=== PATIENT | male | born 1930 | race Caucasian/White ===

== ENCOUNTER 2016-12-18 09:37 | Day surgery (SDC) | payer MEDICARE ==
--- NOTE | ~2016-12-18 | CN ---
Consultation Report [address] [place]. [address] NAME: ESTEE HERNANDEZ : [birth year] STATUS : REG [facility] PAT#: [id number] AGE: 86 ADM/REG DATE : 12/18/16 MR#: [id number] REPORT SERV DATE: 12/18/16 DICTATED BY: CARLA CARLSON DATE: 12/18/16 REPORT STATUS : Draft TRANSCRIBED BY: MODL DATE: 12/18/16 CONSULTATION REPORT DATE OF CONSULTATION: Dear Dr. My Alejandre, Dr. Ramón Davies, and Dr. Mirlande Pitt: Thank you for requesting my opinion regarding evaluation and management of Mr. Estee Hernandez's new mediastinal lymphadenopathy and left lower lobe lung mass. Mr. Hernandez is an extremely pleasant 86-year-old gentleman with a significant past medical history of adenocarcinoma, status post radiation therapy who underwent repeat PET-CT scan on 12/05/2016 that demonstrated left lung post radiation treatment pneumonitis with associated reactive adenopathy, some of the lymph nodes have significantly enlarged and are more FDG avid than on the pretreatment exam, but it is hard to exclude metastases. New inflammatory changes were also noted in the right pulmonary base. No extrathoracic disease was identified. Mr. Hernandez states that he has chronic shortness of breath well localized to the chest, nonradiating with no significant alleviating or exacerbating factors. REVIEW OF SYSTEMS: A detailed 14-point review of systems was completed. Pertinent positives and negatives are listed above. ALLERGIES: NO KNOWN DRUG ALLERGIES. HOME MEDICATIONS: Reviewed and located in the paper chart. PAST MEDICAL HISTORY: 1. Cataracts. 2. Gout. 3. Kidney stones. 4. Prostate disease. 5. Left lower lobe lung adenocarcinoma. PAST SURGICAL HISTORY: 1. Appendectomy. 2. Cataract surgery. 3. Gallbladder surgery. 4. Inguinal hernia repair. 5. Knee replacement. 6. Knee surgery. 7. Prostate surgery. FAMILY HISTORY: Colon cancer, COPD, anemia, arthritis, hypertension, hyperlipidemia, type 1 and type 2 diabetes, and depression. Consultation Report [address] [place]. [address] NAME: ESTEE HERNANDEZ : 34 STATUS : REG [facility] PAT#: [id number] AGE: 86 ADM/REG DATE : 12/18/16 MR#: [id number] REPORT SERV DATE: 12/18/16 DICTATED BY: LILLYRAFAELAJ DATE: 12/18/16 REPORT STATUS : Draft TRANSCRIBED BY: NEENA DATE: 12/18/16 SOCIAL HISTORY: The patient smoked less than one pack per day for 40 years. He denies any significant secondhand smoke exposure, and there is no history of alcohol or illicit drug abuse. PHYSICAL EXAMINATION: VITAL SIGNS: Vital signs were reviewed and located in the paper chart. GENERAL: In no acute distress. Able to communicate in full paragraphs at a time. HEENT: Normocephalic and atraumatic. Pupils are equal, round, and reactive to light and accommodation. Posterior oropharynx is clear. NECK: No JVD. No LAD. Trachea midline. CARDIOVASCULAR: Regular rate and rhythm. S1 and S2 present. LUNGS: Coarse bilateral breath sounds. No end-expiratory wheezes noted. ABDOMEN: Nontender and nondistended. Soft. Positive bowel sounds. EXTREMITIES: No clubbing, cyanosis, or edema. SKIN: No new rashes, lesions, or ulcers. PSYCHIATRIC: Alert and oriented x3. Appropriate mood and affect. Appropriate insight and judgment. NEUROLOGIC: 5/5 strength in upper and lower extremities. Cranial nerves II through XII are intact. Gait not tested. DTRs not performed. IMAGING: PET-CT scan performed on 12/05/2016 was personally reviewed by me. Mediastinal lymph nodes have enlarged and are more FDG avid than on the prior exam. Level 6 lymph node measures 1.5 cm versus 0.7 cm. FDG uptake is increased to 4.7 versus 3.5. 10R lymph node is much more avid on the previous scan with a maximum FDG uptake of 4.94. 4L lymph node had a previous maximum of 3.6, now has 6.6. The mediastinal lymphadenopathy and left lung mass may represent residual disease or recurrence, however, this could also represent post radiation reactive changes. ASSESSMENT AND PLAN: Mr. Hernandez is a pleasant 86-year-old gentleman with a significant past medical history of left lower lobe adenocarcinoma, status post radiation therapy, who presents to [facility] for formal evaluation of an abnormal surveillance PET-CT scan with enlarging and intensive FDG avid, mediastinal lymphadenopathy, and left lower lobe lung mass. The clinical and radiographic presentation could be consistent with progressive disease versus reactive changes secondary to radiation. At this point, Mr. Hernandez needs an appropriate diagnostic intervention. We discussed in detail potential options including CT-guided FNA, thoracic surgical biopsy or EBUS, and navigation bronchoscopy. After careful discussion of the risks, benefits, and alternatives to each of these procedures, we agreed to proceed forward with EBUS and navigation bronchoscopy. A summary of my recommendations are as follows: 1. Proceed with EBUS and navigation bronchoscopy. 2. Follow up with doctors, Dr. Ramón Davies, Dr. My Alejandre, and Dr. Mirlande Pitt. Consultation Report [address] [place]. [address] NAME: ESTEE HERNANDEZ : 34 STATUS : REG [facility] PAT#: [id number] AGE: 86 ADM/REG DATE : 12/18/16 MR#: [id number] REPORT SERV DATE: 12/18/16 DICTATED BY: CARLA CARLSON DATE: 12/18/16 REPORT STATUS : Draft TRANSCRIBED BY: NEENA DATE: 12/18/16 YULI/NEENA Carla Carlson M.D. / [id number] CC: Pete Godinez SAMIYA
--- NOTE | ~2016-12-18 | EGD ---
EGD REPORT [facility] [address] [id number] NAME: ESTEE HERNANDEZ : 34 STATUS : REG [facility] [place] PAT#: [id number] AGE: 86 ADM/REG DATE : 12/18/16 MR#: [id number] REPORT SERV DATE: 12/18/16 DICTATED BY: SARANYA CARR DATE: 12/18/16 REPORT STATUS : Draft TRANSCRIBED BY: [facility] DATE: 12/18/16 Pulmonology Patient Name: Estee Hernandez Procedure Date: 12/18/2016 11:42 AM Date of : 1930 Attending MD: TIEN CARR MD Procedure Date No Time: 12/18/2016 Procedure: EBUS Bronchoscopy Indications: Left lower lobe mass Providers: TIEN CARR MD Referring MD: Jaime Alejandre Medicines: Lidocaine 2% 20 mL Complications: No immediate complications Procedure: Pre-Anesthesia Assessment: - A History and Physical has been performed. Patient meds and allergies have been reviewed. The risks and benefits of the procedure and the sedation options and risks were discussed with the patient. All questions were answered and informed consent was obtained. Patient identification and proposed procedure were verified prior to the procedure by the physician and the nurse in the pre-procedure area in the procedure room. Mental Status Examination: normal. Airway Examination: normal oropharyngeal airway. Respiratory Examination: poor air movement. CV Examination: normal and RRR, no murmurs, no S3 or S4. ASA Grade Assessment: IV - A patient with severe systemic disease that is a constant threat to life. After reviewing the risks and benefits, the patient was deemed in satisfactory condition to undergo the procedure. The anesthesia plan was to use general anesthesia. Immediately prior to administration of medications, the patient was re-assessed for adequacy to receive sedatives. The heart rate, respiratory rate, oxygen saturations, blood pressure, adequacy of pulmonary ventilation, and response to care were monitored throughout the procedure. The physical status of the patient was re-assessed after the procedure. After obtaining informed consent, the Bronchoscope was introduced through the mouth, via the endotracheal tube (the patient was intubated for the procedure) and advanced to the tracheobronchial tree. the BF [id number] was introduced through the mouth, via the endotracheal tube (the patient was intubated for the procedure) and advanced to the tracheobronchial tree. The procedure was accomplished without difficulty. The EGD REPORT [address] [address] NAME: ESTEE HERNANDEZ : [birth year] STATUS : REG [facility] [place] PAT#: [id number] AGE: 86 ADM/REG DATE : 12/18/16 MR#: [id number] REPORT SERV DATE: 12/18/16 DICTATED BY: SARANYA CARR DATE: 12/18/16 REPORT STATUS : Draft TRANSCRIBED BY: [employer] DATE: 12/18/16 patient tolerated the procedure well. Findings: The endotracheal tube is in good position. The visualized portion of the trachea is of normal caliber. The fritz is sharp. The tracheobronchial tree was examined to at least the first subsegmental level. Bronchial mucosa and anatomy are normal; there are no endobronchial lesions, and no secretions. EBUS TBNA of lymph node level 11R x 4 passes for cytology EBUS TBNA of lymph node level 7 x 4 passes for cytology EBUS TBNA of lymph node level 4L x 4 passes for cytology EBUS TBNA of lymph node level 11L x 4 passes for cytology Brushings were obtained in the right middle lobe of the lung and sent for routine cytology. One sample was obtained. Impression: Rapid On-Site Evaluation (BRYAN): Preliminary cytology is POSITIVE for malignancy (final results are pending). Recommendation: - Await test results. - Chest X-ray. - Follow up with Drs. Ramón Davies and My Alejandre Attending Participation: I personally performed the entire procedure. TIEN CARR MD 12/18/2016 12:47 PM This report has been signed electronically. Number of Addenda: 0 Note Initiated On: 12/18/2016 11:42 AM [address] [id number]
[~2016-12-18 09:37] MED LIST: ACET500CAP PO; BROVANA15 MCG INH; DUONEB INH; FISH-EPA1000 MG PO; INDO50 PO; MULTIPLE VIT PO; PREV15 PO; PRILO PO; PRIM250 PO; PRIMIDONE250 MG OR; ZANTAC150 MG PO
[2016-12-18 10:09] LABS: BUN (BLOOD UREA NITROGEN) 16 MG/DL (6-23); CALCIUM, SERUM 9.1 MG/DL (8.5-10.4); CHLORIDE, SERUM 106 MMOL/L (96-112); CO2 (CARBON DIOXIDE) 26 MMOL/L (24-34); CREATININE 1.02 MG/DL (0.70-1.30); GFR AFRICAN AMERICAN 78 ML/MIN (>=60); GFR NON AFRICAN AMERICAN 67 ML/MIN (>=60); GLUCOSE, SERUM 95 MG/DL (60-99); POTASSIUM, SERUM 4.3 MMOL/L (3.5-5.3); SODIUM, SERUM 142 MMOL/L (135-148)
[2016-12-18 10:11] LABS: INTERNATIONAL NORMAL RATI 1.1 UNITS (-); PARTIAL THROMBO TIME 33.7 SEC (22.5-37.2); PROTIME (NOT ORD) 14.2 SEC (12.0-14.5)
[2016-12-18 10:35] LABS: BASOPHILS 0.6 %; BASOPHILS ABSOLUTE 0.03 10/3/uL (0.0-0.16); EOSINOPHILS 4.6 %; EOSINOPHILS ABSOLUTE 0.22 10/3/uL (0.0-0.53); HEMATOCRIT 42.3 % (40.0-51.0); HEMOGLOBIN 14.7 g/dL (13.6-17.8); IMMATURE GRANULOCYTES 0.2 %; IMMATURE GRANULOCYTES ABSOLUTE 0.01 10/3/uL (0.0-0.11); LYMPHOCYTES 11.6 %; LYMPHOCYTES ABSOLUTE 0.55 10/3/uL (0.67-4.30); MANUAL DIFF NO %; MEAN CORPUS HGB CONC 34.8 g/dL (32.0-36.0); MEAN CORPUSCULAR HEMOGLOB 33.3 pg (26.0-34.0); MEAN CORPUSCULAR VOLUME 95.9 fL (80-100); MEAN PLATELET VOLUME 10.2 fL (9.2-13.0); MONOCYTES 12.4 %; MONOCYTES ABSOLUTE 0.59 10/3/uL (0.21-1.20); NEUTROPHILS 70.6 %; NEUTROPHILS ABSOLUTE 3.34 10/3/uL (2.02-8.40); PLATELET COUNT 207 10/3/uL (150-400); RBC DISTRIBUTION WIDTH 13.2 % (12.0-16.0); RED CELL COUNT 4.41 10/6/uL (4.7-6.1); WHITE BLOOD CELLS 4.7 10/3/uL (4.5-10.5)
[2017-02-03] MEDS ORDERED: ZANTAC 150 PO (10:48)
[2017-02-03] MEDS ORDERED: TAGRISSO PO (10:48)
[2017-02-03] MEDS ORDERED: BROVANA15 MCG INH (10:49)
[2017-02-03] MEDS ORDERED: MONODOX100 MG PO (10:49)
[2017-02-03] MEDS ORDERED: ATROVENTUD INH ×2 (11:00)
[2017-02-03] MEDS ORDERED: PRIM250 PO ×2 (11:01→11:02)
== END 2016-12-18 23:59 | disposition home health service (06) ==
LOC: DMU 09:37
PROVIDERS: Anesthesiology; Internal Medicine
PROC: 0BB58ZX Excision of Right Middle Lobe Bronchus, Via Natural or Artificial Opening Endoscopic, Diagnostic (ICD-10-PCS; principal; 2016-12-18 11:00)
PROC: 07B74ZX Excision of Thorax Lymphatic, Percutaneous Endoscopic Approach, Diagnostic (ICD-10-PCS; 2016-12-18 11:00)
DX: C77.1 Secondary and unspecified malignant neoplasm of intrathoracic lymph nodes (principal); J44.9 Chronic obstructive pulmonary disease, unspecified; M19.90 Unspecified osteoarthritis, unspecified site; K21.9 Gastro-esophageal reflux disease without esophagitis; N40.0 Benign prostatic hyperplasia without lower urinary tract symptoms; Z85.118 Personal history of other malignant neoplasm of bronchus and lung; Z79.899 Other long term (current) drug therapy; Z90.49 Acquired absence of other specified parts of digestive tract; Z98.890 Other specified postprocedural states; Z87.442 Personal history of urinary calculi; Z98.41 Cataract extraction status, right eye; Z98.42 Cataract extraction status, left eye; Z96.651 Presence of right artificial knee joint
CPT/HCPCS: 71010; 80048; 85025; 85610; 85730; 88112; 88172; 88173; 88305; 88333; 93005; A9270-GY; C1725; J2710; J3010

== ENCOUNTER 2017-02-28 16:49 | Inpatient (IN) | payer MEDICARE ==
--- NOTE | ~2017-02-28 | HP ---
History And Physical [place] [facility] [place]. [address] NAME: ESTEE HERNANDEZ : 34 STATUS : ADM IN PAT#: [id number] AGE: 87 ADM/REG DATE : 02/28/17 MR#: [id number] REPORT SERV DATE: 03/01/17 DICTATED BY: BONILLA WILSON DATE: 02/28/17 REPORT STATUS : Draft TRANSCRIBED BY: MODL DATE: 02/28/17 DATE OF ADMISSION: 02/28/2017 IDENTIFYING DATA: An 87-year-old white male whose PCP is nurse practitioner, Candelaria Grubbs; medical oncologist, Ramón Davies M.D.; radiation oncologist, Dr. Jaime Alejandre; urologist, Dr. Terrence Norman; neurologist, Dr. Alejandrina Bhat. CHIEF COMPLAINT: Weakness and cough. HISTORY OF PRESENT ILLNESS: This history of present illness is obtained by talking directly with the patient and his at the bedside. There is also a daughter and a daughter-in- law and another gentleman, and I spoke with the ER provider, Dr. Brunson, I looked at [facility] and the current ER paper chart. He was diagnosed with stage IB adenocarcinoma of left lower lobe, in March 2016 he had radiation treatment. Earlier this year he was noted to have brain metastases on MRI of the brain 01/06/2017, felt to have stage IV lung cancer. He was admitted to the hospital here on 02/03/2017. He at that time had a COPD exacerbation and was followed by Dr. Ramón Davies along with the Internal Medicine Team, and the notes indicated the patient was not felt to be a candidate for any further chemo or radiation therapy. He had been trying Tagrisso, but he had to hold his primidone which he normally takes for tremor, and he did not seem to tolerate the Tagrisso, so they took him off it, and put him back on his primidone. During that hospitalization, he was treated for his COPD, and felt better. He did make it clear that he was DNR. Since being at home, he has continued to get progressively weaker and more anorexic, having a lot of mid spine and low back pain. Saw his urologist a few days ago for dysuria and was given some Septra DS and felt better in that regard. He has been coughing more, more short of breath, so he is brought to the emergency room here and we were asked to evaluate him. He states he did get the flu shot last fall and he is up-to-date on his pneumonia vaccine as far as he knows. REVIEW OF SYSTEMS: He has a worsening chronic cough. He has some urinary hesitancy, and two to three time per night nocturia. He has increasing shortness of breath, has dyspnea on exertion. He has lost his taste. He has some chronic headaches over the last few months. He denies any recent falls, fever, change in sputum. He denies any significant edema, rash, chest pain, tick bites, abdominal pain, diarrhea, rectal bleeding, or melena. ALLERGIES: NO KNOWN DRUG ALLERGIES. PAST MEDICAL HISTORY: He denies any history of diabetes, hypertension, heart disease, stroke, seizure, peptic ulcer, liver disease, thyroid disease. He has oxygen dependent COPD, where he was wearing just 2 L at bedtime, now he is wearing it History And Physical [address] [address] NAME: ESTEE HERNANDEZ : 34 STATUS : ADM IN PAT#: [id number] AGE: 87 ADM/REG DATE : 02/28/17 MR#: [id number] REPORT SERV DATE: 03/01/17 DICTATED BY: BONILLA WILSON DATE: 02/28/17 REPORT STATUS : Draft TRANSCRIBED BY: NEENA DATE: 02/28/17 pretty much all the time. He has sleep apnea, but he never went back to get tested for CPAP. He has a history of gout. He has pretty severe essential tremor and apparently he does better on the primidone, now that he has been placed back on it. He has had kidney stones. He has had benign prostatic hypertrophy. He has had gastroesophageal reflux disease. HOME MEDICATIONS: 1. Tylenol p.r.n. 2. Brovana 15 mcg inhale twice a day. 3. Lexapro 5 mg daily. 4. Atrovent nebulized q.4 hours p.r.n. shortness of breath. 5. Protonix 40 mg daily. 6. MiraLAX one packet daily. 7. Mysoline 375 mg b.i.d. 8. Bactrim DS p.o. b.i.d., started on 02/26/2017. PAST SURGICAL HISTORY: He has had an appendectomy. He has had cataract surgery, cholecystectomy, left inguinal hernia, right knee replacement, and prostate resection. SOCIAL HISTORY: He is . He used to work as a builder. He used to smoke a pack per day from age 20 through somewhere in his 60s. No significant alcohol intake history. He used to use a cane, now he has gotten to where he needs a walker or wheelchair. FAMILY HISTORY: Mother had lung cancer. Dad with COPD. Siblings with diabetes, leukemia, and colon cancer. DIAGNOSTIC DATA: Chest x-ray done today as a PA and lateral reveals extensive interstitial scarring and/or small nodular infiltrate, its diffuse in bilateral lung smiley. He also has a chronic stable dense atelectasis that extends upward to the left out from the left hilum per my interpretation. EKG done today at 1418 hours reveals motion artifact, but appears to be a sinus rhythm and no other significant abnormalities. Sodium 133, potassium 4.1, chloride 102, CO2 is 23, BUN 14, creatinine 0.93, glucose 104, calcium 9, and albumin 3.1. Troponin less than 0.02. The rest of the liver profile is normal. Phenobarbital level is 22.5. His B-natriuretic peptide is 10.9. His white count is 6.4, hemoglobin 14.4, and platelets are 216,000. His urinalysis is still pending. PHYSICAL EXAMINATION: VITAL SIGNS: Temp 98, pulse 70, respirations 24, blood pressure 120/70, and O2 saturation is 90% on 2 L. History And Physical [address] [address] NAME: ESTEE HERNANDEZ : 34 STATUS : ADM IN PAT#: [id number] AGE: 87 ADM/REG DATE : 02/28/17 MR#: [id number] REPORT SERV DATE: 03/01/17 DICTATED BY: BONILLA WILSNO DATE: 02/28/17 REPORT STATUS : Draft TRANSCRIBED BY: NEENA DATE: 02/28/17 GENERAL: A well-developed male, who appears very weak. Mildly short of breath. HEENT: Head is atraumatic. Pupils are equal, round, and reactive to light. Extraocular motions are intact. No scleral icterus noted. Ear canals and TMs unremarkable. No inflammatory changes noted to the ears externally. Nose, noninflamed externally. Septum midline. Nares patent. He is wearing oxygen 2 L at this time by nasal cannula. Mouth is a bit dry, good gag. No redness of the throat, gums, or lips. No thrush noted at this time. NECK: Supple. No lymph node or thyroid enlargement. The carotids have good pulses. No bruits. LUNGS: Prolonged expiratory phase. 1 to 2+ expiratory wheezes, some crackles in the bases. Mildly increased respiratory effort. HEART: Regular rate and rhythm without murmur, gallop, click, or rub. ABDOMEN: Bowel sounds positive. Soft, nondistended, and nontender. No masses. No organomegaly. EXTREMITIES: He has clubbing. No cyanosis. He has 1+ bilateral ankle edema. No actively inflamed skin or joints. NEUROLOGIC: He is alert, oriented, and cooperative with grossly normal mentation and speech. His motor strength is 2/5 in all four extremities. No Babinski. No clonus noted. Cranial nerves 2 through 12 grossly normal. The patient has a moderate tremor with activity. It is present at rest, but more with activity. It is diffuse and symmetrical looks like essential tremor. ASSESSMENT: 1. Acute exacerbation of oxygen-dependent chronic obstructive pulmonary disease with increased shortness of breath, increased cough, increased dyspnea on minimal exertion, and a diffuse interstitial infiltrate. 2. 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 3. Mid spine pain suggestive of possible bony met. 4. History of gout. 5. Essential tremor. 6. Kidney stones. 7. History of benign prostatic hypertrophy. 8. History of gastroesophageal reflux disease. 9. Obstructive sleep apnea, and the patient refuses continuous positive airway pressure. PLAN: 1. Admit to the Oncology floor. 2. Nebulizer treatments. 3. Steroids with IV Solu-Medrol. 4. We are going to begin him on antibiotics, Rocephin, and azithromycin. We will check procalcitonin and urine antigens, blood cultures, and sputum Gram stain, C and S. 5. I will ask his medical oncologist to talk with him and his about two questions they have, one was whether he could get brain radiation and the second was I advised the patient to go on to hospice and they want to talk to Medical Oncology about that first. 6. I talked with the patient about his code status, he confirms DNR. 7. We will get MRI of the thoracic and lumbar spine and the brain as well to see if he has History And Physical [place] [address] [id number] NAME: ESTEE HERNANDEZ : [birth year] STATUS : ADM IN PAT#: [id number] AGE: 87 ADM/REG DATE : 02/28/17 MR#: [id number] REPORT SERV DATE: 03/01/17 DICTATED BY: BONILLA WILSON DATE: 02/28/17 REPORT STATUS : Draft TRANSCRIBED BY: NEENA DATE: 02/28/17 new metastases, and again he confirmed his DNR status, and we will try some Megace to see if it helps stimulate appetite. RSG/NEENA Bonilla Wilson M.D. / [id number] CC: MD Candelaria Arias II, FNP Sharon Farber, M.D. Davey B. Daniel, M.D. Jaime Alejandre MD
--- NOTE | ~2017-02-28 | DS ---
Discharge Summary [address] [place]. [address] NAME: ESTEE HERNANDEZ : 34 STATUS : DIS IN PAT#: [id number] AGE: 87 ADM/REG DATE : 02/28/17 MR#: [id number] REPORT SERV DATE: 03/03/17 DICTATED BY: DATE: REPORT STATUS : Draft TRANSCRIBED BY: MODL DATE: 03/02/17 ADMISSION DATE: 02/28/2017 DISCHARGE DATE: 03/02/2017 DISCHARGE DIAGNOSES: 1. Chronic obstructive pulmonary disease, acute exacerbation. 2. Urinary tract infection, present upon admission. 3. 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 4. Malnutrition. 5. Stage IV non-small cell lung cancer. 6. Chronic essential tremor. CONSULTATIONS: Dr. Tim Osorio, [facility]. PERTINENT TESTING PROCEDURES: 1. Chest x-ray, 02/28/2017. Impression: Stable consolidation of the left hilum correlating to the patient's known lung cancer and postobstructive pneumonitis. Multifocal miliary nodules seen with interstitial opacity suspicious for lymphangitic carcinomatosis and/or superimposed pneumonia. 2. MRI of the brain without contrast, 02/28/2017. Impression:. a. No acute intracranial abnormality. Left maxillary sinusitis. b. Non-identified [employer] metastases due to lack of IV contrast. No evidence of acute cranial hemorrhage, mass, hydrocephalus, or midline shift. 3. MRI of the lumbar spine without contrast, 02/28/2017. Impression:. a. Multifocal abnormal marrow signal lesions throughout the lumbar spine, sacrum, and iliac body strongly suspicious for multifocal osseous metastatic disease. Largest lesion is seen at T11 measuring 2 x 1 x 1 x 8 cm. No evidence of epidural or paraspinal mass. No pathologic fracture. 4. MRI of the thoracic spine, 02/28/2017. Impression: Multifocal metastatic disease without paraspinal or epidural mass. No pathologic fracture. 5. Urinalysis specimen collected, 02/28/2017. Result: Negative leukocyte andrew, negative nitrites, 1 red blood cell, less than 1 white blood cell, less than 1 epithelial/squamous cell. 6. Blood culture x2 sites, no growth at two days. 7. Strep pneumococcus and Legionella urine antigen. Result: Negative. CHIEF COMPLAINT: Upon admission, weakness and cough. HOSPITAL COURSE: Please refer to history and physical dated 03/01/[address] Luc Wilson for complete details pertaining to the patient's initial presentation upon admission and health history. 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 Followed by Dr. Ramón Davies, [facility]; and Dr. Alejandre, Radiation/Oncology. COPD, urinary tract infection diagnosed prior to this Discharge Summary [address] [address] NAME: ESTEE HERNANDEZ : 34 STATUS : DIS IN PAT#: [id number] AGE: 87 ADM/REG DATE : 02/28/17 MR#: [id number] REPORT SERV DATE: 03/03/17 DICTATED BY: DATE: REPORT STATUS : Draft TRANSCRIBED BY: MODL DATE: 03/02/17 admission, and essential tremors. The patient presented to the emergency department on 02/28/2017 with family by bedside. Family reported the patient has continued to get progressively weaker with increasing anorexia and persistent low and mid back spine pain. The patient was also evaluated by his urologist several days prior to this admission secondary to complaints of dysuria. At this time, the patient was provided a prescription for Septra DS to treat urinary tract infection. Initial evaluation was concerning for acute exacerbation of oxygen-dependent chronic obstructive pulmonary disease with symptoms to include increased shortness of breath, increased cough, and increased dyspnea with minimal exertion. Chest x-ray was also concerning for multifocal miliary nodules seen with interstitial opacities suspicious for lymphangitic carcinomatosis and/or superimposed pneumonia. The patient was admitted for further evaluation and treatment. 1. COPD acute exacerbation. It is noteworthy to mention that patient was hospitalized at [facility] between the dates of 02/03/2017 and 02/05/2017. Discharge diagnosis included chronic obstructive pulmonary disease with exacerbation. The patient started antibiotic therapy to include azithromycin 500 mg p.o. every 24 hours with continuation of nebulizer inhalation therapies. The patient was also provided with methylprednisolone 40 mg IV every 12 hours. The patient responded well to this treatment, and at the time of discharge, dyspnea on exertion had returned to near baseline. Prior to this admission patient was using supplemental oxygen at bedtime only. The patient indicated that he has now started using supplemental oxygen throughout the day as well. Trial of ambulation indicated. The patient's oxygen saturation dropped to 87% on room air with ambulation. This qualifies the patient for continuos home supplemental oxygenation therapy. The patient was provided with new orders to include portable tank and concentrator. The patient has three days of azithromycin therapy remaining to complete five-day total treatment. The patient will also resume Bactrim DS twice daily x11 more days to complete treatment for a urinary tract infection diagnosed prior to this admission. Azithromycin will be discontinued and the patient will resume Bactrim to treat COPD acute exacerbation. Tapering dose of steroids times three more days will be provided. 2. Urinary tract infection. This was present upon admission. The patient presented to urologist's office several days prior to this discharge with complaints of dysuria. The patient was provided prescription for Bactrim DS p.o. every 12 hours x14 days. During this admission, Bactrim was discontinued and Rocephin IV was initiated. The patient will restart Bactrim to complete entire course of therapy upon discharge. The patient will follow up with Urology on 03/17/2017. 3. Lower to mid back pain, chronic. There was concern for metastases to the spine. MRI of the thoracic and lumbar spine was obtained during this admission and report indicated multifocal metastatic disease without paraspinal or epidural mass. The patient and his family were made aware of this new diagnosis. The patient is to follow up with Dr. Alejandre, Radiation Oncology, on 03/11/2017. 4. Chronic malnutrition. This is secondary to chronic comorbidities. The patient was started on Megace during this admission and responded well. Appetite has increased. Discharge Summary [address] [address] NAME: ESTEE HERNANDEZ : 34 STATUS : DIS IN PAT#: [id number] AGE: 87 ADM/REG DATE : 02/28/17 MR#: [id number] REPORT SERV DATE: 03/03/17 DICTATED BY: DATE: REPORT STATUS : Draft TRANSCRIBED BY: MODL DATE: 03/02/17 He will be provided a home prescription for Megace 625 mg p.o. daily. Case Management was consulted for Sportlyzer, and this medication will be less than 20 dollars per month. 5. Stage IV non-small lung cancer left lower lobe with new diagnosis of multifocal osseous metastatic disease. The patient's pain has improved without intervention during this admission. He was provided a prescription for hydrocodone to use as needed and will follow up with Radiation/Oncology on 03/11/2017. MRI of the brain with and without contrast obtained prior to this admission on 01/27/2017 reported three metastatic lesions that were stable compared to 01/06/2017 exam. The patient underwent MRI of the brain without contrast during this admission and no acute intracranial abnormality was identified. 6. Non-identified [employer] metastases due to lack of IV contrast. The patient will follow up with Dr. Alejandre. DISCHARGE CONDITION: At the time of discharge, the patient is hemodynamically stable. DISCHARGE DIET: Regular diet as tolerated. Nutritional supplement shakes as the patient can tolerate. DISCHARGE MEDICATIONS: 1. Lexapro 5 mg tablet p.o. daily. 2. Megace ES 125 mg/mL, take 625 mg p.o. daily. 3. Protonix 40 mg tablet p.o. daily. 4. MiraLAX 17 g p.o. daily, hold for diarrhea. 5. Primidone 250 mg tablet, take 375 mg p.o. twice daily. 6. Brovana 15 mcg/2 mL nebulizer dose, 50 mcg inhaled twice daily. 7. Atrovent solution 2.5 mL dose, one nebulizer treatment four times daily as needed. 8. Tylenol 500 mg p.o. daily as needed. 9. Colace 100 mg p.o. twice daily as needed. 10.Hydrocodone 5/325 mg tablet p.o. every six hours as needed, hold for sedation. 11.Senokot two tablets p.o. at bedtime as needed. 12.Bactrim DS p.o. twice daily x14 days. The patient has this medication as prescribed prior to this admission understands to complete entire number of days prescribed. 13.Prednisone 40 mg p.o. every a.m. x3 days, then stop. DISCHARGE INSTRUCTIONS: 1. Follow up with Dr. Alejandre, Radiation Oncology, 03/11/2017. 2. Follow up with Dr. Norman, Urology, 03/17/2017. 3. Follow up with Dr. Ramón Davies, Oncology, 03/17/2017. The patient and his family were educated on signs and symptoms that would warrant return to the emergency department. These signs and symptoms include change in respiratory status to include increased dyspnea on exertion, higher requirement from baseline for oxygen supplementation to maintain saturation above 90%, acute onset of fever 100.4 degrees or higher lasting more than one hour intractable chills, shortness of breath, chest pain, or any other health concerns or deviations from his baseline health status at this time of this discharge. Discharge Summary [address] [place]. [address] NAME: ESTEE HERNANDEZ : 34 STATUS : DIS IN PAT#: [id number] AGE: 87 ADM/REG DATE : 02/28/17 MR#: [id number] REPORT SERV DATE: 03/03/17 DICTATED BY: DATE: REPORT STATUS : Draft TRANSCRIBED BY: NEENA DATE: 03/02/17 PRIMARY ONCOLOGIST: Ramón Davies M.D. PRIMARY RADIATION ONCOLOGIST: Jaime Alejandre MD. PRIMARY UROLOGIST: Dr. Terrence Norman. PRIMARY NEUROLOGIST: Alejandrina Bhat M.D. PRIMARY CARE PHYSICIAN: Candelaria Grubbs, nurse practitioner. [facility]/NEENA FERNANDA Jasso / [id number] CC: Bladimir Carson II, MD
[2017-02-28 14:14] LABS: BASOPHILS 0.3 %; BASOPHILS ABSOLUTE 0.02 10/3/uL (0.0-0.16); EOSINOPHILS 2.3 %; EOSINOPHILS ABSOLUTE 0.15 10/3/uL (0.0-0.53); HEMATOCRIT 40.9 % (40.0-51.0); HEMOGLOBIN 14.4 g/dL (13.6-17.8); IMMATURE GRANULOCYTES 0.5 %; IMMATURE GRANULOCYTES ABSOLUTE 0.03 10/3/uL (0.0-0.11); LYMPHOCYTES 6.6 %; LYMPHOCYTES ABSOLUTE 0.42 10/3/uL (0.67-4.30); MEAN CORPUS HGB CONC 35.2 g/dL (32.0-36.0); MEAN CORPUSCULAR HEMOGLOB 33.3 pg (26.0-34.0); MEAN PLATELET VOLUME 9.7 fL (9.2-13.0); MONOCYTES 13.6 %; MONOCYTES ABSOLUTE 0.87 10/3/uL (0.21-1.20); NEUTROPHILS 76.7 %; NEUTROPHILS ABSOLUTE 4.92 10/3/uL (2.02-8.40); RBC DISTRIBUTION WIDTH 13.3 % (12.0-16.0); RED CELL COUNT 4.32 10/6/uL (4.7-6.1); WHITE BLOOD CELLS 6.4 10/3/uL (4.5-10.5)
[2017-02-28 14:15] LABS: MANUAL DIFF NO %; MEAN CORPUSCULAR VOLUME 94.7 fL (80-100); PLATELET COUNT 216 10/3/uL (150-400)
[2017-02-28 14:29] LABS: A/G RATIO 0.8 (0.7-1.9); ALBUMIN 3.1 G/DL (3.5-5.0); ALKALINE PHOSPHATASE 94 U/L (45-117); BUN (BLOOD UREA NITROGEN) 14 MG/DL (6-23); CHLORIDE, SERUM 102 MMOL/L (96-112); CO2 (CARBON DIOXIDE) 23 MMOL/L (24-34); CREATININE 0.93 MG/DL (0.70-1.30); GFR AFRICAN AMERICAN 86 ML/MIN (>=60); GFR NON AFRICAN AMERICAN 75 ML/MIN (>=60); GLUCOSE, SERUM 104 MG/DL (60-99); POTASSIUM, SERUM 4.1 MMOL/L (3.5-5.3); SGOT(AST) 19 U/L (5-40); SGPT(ALT) 37 U/L (5-65); SODIUM, SERUM 133 MMOL/L (135-148); TOTAL PROTEIN 7.1 G/DL (6.0-8.5)
[2017-02-28 14:31] LABS: TOTAL BILIRUBIN 0.3 MG/DL (0-1.2)
[2017-02-28 16:48] LABS: PHENOBARBITAL 22.5 MCG/ML (15.0-40.0); TROPONIN I <0.02 NG/ML (<0.05)
[~2017-02-28 16:49] MED LIST changes: +ATROVENTUD INH; +MONODOX100 MG PO; +TAGRISSO PO; +ZANTAC 150 PO
[2017-02-28] MEDS ORDERED: BROVANA15 MCG INH (17:22)
[2017-02-28] MEDS ORDERED: ATROVENTUD INH (17:23)
[2017-02-28] MEDS ORDERED: PRIM250 PO (17:23)
[2017-02-28] MEDS ORDERED: BACDS PO (17:24)
[2017-02-28] MEDS ORDERED: PROTONIX PO (17:25)
[2017-02-28] MEDS ORDERED: LEXAPRO5 MG PO (17:25)
[2017-02-28] MEDS ORDERED: MIRALAX POWDER1 PKT PO (17:27)
[2017-02-28] MEDS ORDERED: ACET500CAP PO (17:27)
[2017-02-28 21:48] LABS: TROPONIN I <0.02 NG/ML (<0.05)
[2017-02-28 22:06] LABS: PROCALCITONIN <0.05 ng/mL (<0.5)
[2017-02-28 22:08] LABS: ASCORBIC ACID (UR NOT ORDER) NEG (NEG); BILIRUBIN, URINE NEGATIVE (NEG); KETONE, URINE TRACE MG/DL (NEG); LEUKOCYTE ESTERASE(NOT OR NEG (NEG); WBC (NOT ORDERED) (RFLEX) < 1 (0-5)
[2017-03-01 04:48] LABS: BASOPHILS 0.2 %; BASOPHILS ABSOLUTE 0.01 10/3/uL (0.0-0.16); EOSINOPHILS 0.9 %; EOSINOPHILS ABSOLUTE 0.04 10/3/uL (0.0-0.53); HEMATOCRIT 38.9 % (40.0-51.0); HEMOGLOBIN 13.8 g/dL (13.6-17.8); IMMATURE GRANULOCYTES 0.4 %; IMMATURE GRANULOCYTES ABSOLUTE 0.02 10/3/uL (0.0-0.11); LYMPHOCYTES 10.1 %; LYMPHOCYTES ABSOLUTE 0.45 10/3/uL (0.67-4.30); MANUAL DIFF NO %; MEAN CORPUS HGB CONC 35.5 g/dL (32.0-36.0); MEAN CORPUSCULAR HEMOGLOB 33.5 pg (26.0-34.0); MEAN CORPUSCULAR VOLUME 94.4 fL (80-100); MEAN PLATELET VOLUME 9.8 fL (9.2-13.0); MONOCYTES 15.2 %; MONOCYTES ABSOLUTE 0.68 10/3/uL (0.21-1.20); NEUTROPHILS 73.2 %; NEUTROPHILS ABSOLUTE 3.26 10/3/uL (2.02-8.40); PLATELET COUNT 204 10/3/uL (150-400); RBC DISTRIBUTION WIDTH 13.2 % (12.0-16.0); RED CELL COUNT 4.12 10/6/uL (4.7-6.1); WHITE BLOOD CELLS 4.5 10/3/uL (4.5-10.5)
[2017-03-01 05:00] LABS: BUN (BLOOD UREA NITROGEN) 12 MG/DL (6-23); CALCIUM, SERUM 9.1 MG/DL (8.5-10.4); CHLORIDE, SERUM 105 MMOL/L (96-112); CO2 (CARBON DIOXIDE) 22 MMOL/L (24-34); GFR AFRICAN AMERICAN 90 ML/MIN (>=60); GFR NON AFRICAN AMERICAN 78 ML/MIN (>=60); GLUCOSE, SERUM 93 MG/DL (60-99); POTASSIUM, SERUM 4.2 MMOL/L (3.5-5.3); SODIUM, SERUM 137 MMOL/L (135-148)
[2017-03-02 05:55] LABS: BASOPHILS 0.4 %; BASOPHILS ABSOLUTE 0.02 10/3/uL (0.0-0.16); EOSINOPHILS 1.7 %; EOSINOPHILS ABSOLUTE 0.08 10/3/uL (0.0-0.53); HEMATOCRIT 37.2 % (40.0-51.0); HEMOGLOBIN 13.1 g/dL (13.6-17.8); IMMATURE GRANULOCYTES 0.4 %; IMMATURE GRANULOCYTES ABSOLUTE 0.02 10/3/uL (0.0-0.11); LYMPHOCYTES 9.9 %; LYMPHOCYTES ABSOLUTE 0.47 10/3/uL (0.67-4.30); MEAN CORPUS HGB CONC 35.2 g/dL (32.0-36.0); MEAN CORPUSCULAR HEMOGLOB 33.4 pg (26.0-34.0); MEAN CORPUSCULAR VOLUME 94.9 fL (80-100); MEAN PLATELET VOLUME 9.6 fL (9.2-13.0); MONOCYTES 15.8 %; MONOCYTES ABSOLUTE 0.75 10/3/uL (0.21-1.20); NEUTROPHILS 71.8 %; NEUTROPHILS ABSOLUTE 3.41 10/3/uL (2.02-8.40); PLATELET COUNT 213 10/3/uL (150-400); RBC DISTRIBUTION WIDTH 13.1 % (12.0-16.0); RED CELL COUNT 3.92 10/6/uL (4.7-6.1); WHITE BLOOD CELLS 4.8 10/3/uL (4.5-10.5)
[2017-03-02 06:01] LABS: MANUAL DIFF NO %
[2017-03-02 06:05] LABS: CALCIUM, SERUM 8.7 MG/DL (8.5-10.4); CHLORIDE, SERUM 106 MMOL/L (96-112); CO2 (CARBON DIOXIDE) 23 MMOL/L (24-34); CREATININE 0.86 MG/DL (0.70-1.30); GFR AFRICAN AMERICAN 92 ML/MIN (>=60); GFR NON AFRICAN AMERICAN 79 ML/MIN (>=60); GLUCOSE, SERUM 85 MG/DL (60-99); SODIUM, SERUM 138 MMOL/L (135-148)
[2017-03-02 06:06] LABS: BUN (BLOOD UREA NITROGEN) 18 MG/DL (6-23)
[2017-03-02] MEDS ORDERED: SENTAB PO (14:43)
[2017-03-02] MEDS ORDERED: MEGA625UDL PO (14:46)
[2017-03-02] MEDS ORDERED: NORCO1 TA1 PO (14:47)
== END 2017-03-02 15:55 | disposition home or self-care (01) | DRG 191 ==
LOC: ER 16:49 → 4EA 17:50
PROVIDERS: Hospitalist; Internal Medicine; Nurse Practitioner; Nurse Practitioner Family
DX: J44.1 Chronic obstructive pulmonary disease with (acute) exacerbation (principal); C79.31 Secondary malignant neoplasm of brain; E44.0 Moderate protein-calorie malnutrition; J96.10 Chronic respiratory failure, unspecified whether with hypoxia or hypercapnia; C79.51 Secondary malignant neoplasm of bone; N39.0 Urinary tract infection, site not specified; C34.32 Malignant neoplasm of lower lobe, left bronchus or lung; N20.0 Calculus of kidney; G47.33 Obstructive sleep apnea (adult) (pediatric); Z68.25 Body mass index [BMI] 25.0-25.9, adult
CPT/HCPCS: 70551; 71010; 72146; 72148; 80048; 80053; 80184; 81001; 81002; 83605; 83880; 84145; 84484; 85025; 87040; 87070; 87205; 87449; 93005; 94640; 96374; 99285; A9270-GY; G0463; J0456; J2920; J2930

== ENCOUNTER 2017-03-28 17:13 | Emergency (ER) | payer MEDICARE ==
[~2017-03-28 17:13] MED LIST changes: +BACDS PO; +LEXAPRO5 MG PO; +MEGA625UDL PO; +MIRALAX POWDER1 PKT PO; +NORCO1 TA1 PO; +PROTONIX PO; +SENTAB PO
[2017-03-28 17:25] LABS: BASOPHILS 0.5 %; BASOPHILS ABSOLUTE 0.03 10/3/uL (0.0-0.16); EOSINOPHILS 1.3 %; EOSINOPHILS ABSOLUTE 0.07 10/3/uL (0.0-0.53); ER CBC TAT 0 Hrs 13 Mins; HEMATOCRIT 39.6 % (40.0-51.0); HEMOGLOBIN 13.7 g/dL (13.6-17.8); IMMATURE GRANULOCYTES 0.5 %; IMMATURE GRANULOCYTES ABSOLUTE 0.03 10/3/uL (0.0-0.11); LYMPHOCYTES ABSOLUTE 0.39 10/3/uL (0.67-4.30); MANUAL DIFF NO %; MEAN CORPUS HGB CONC 34.6 g/dL (32.0-36.0); MEAN CORPUSCULAR HEMOGLOB 32.4 pg (26.0-34.0); MEAN CORPUSCULAR VOLUME 93.6 fL (80-100); MEAN PLATELET VOLUME 9.8 fL (9.2-13.0); MONOCYTES 13.1 %; MONOCYTES ABSOLUTE 0.73 10/3/uL (0.21-1.20); NEUTROPHILS 77.6 %; NEUTROPHILS ABSOLUTE 4.33 10/3/uL (2.02-8.40); PLATELET COUNT 266 10/3/uL (150-400); RBC DISTRIBUTION WIDTH 13.3 % (12.0-16.0); RED CELL COUNT 4.23 10/6/uL (4.7-6.1); WHITE BLOOD CELLS 5.6 10/3/uL (4.5-10.5)
[2017-03-28 17:33] LABS: INTERNATIONAL NORMAL RATI 1.2 UNITS (-); PARTIAL THROMBO TIME 33.8 SEC (22.5-37.2); PROTIME (NOT ORD) 14.9 SEC (12.0-14.5)
[2017-03-28 17:42] LABS: A/G RATIO 0.8 (0.7-1.9); ALBUMIN 2.8 G/DL (3.5-5.0); CALCIUM, SERUM 8.8 MG/DL (8.5-10.4); CHLORIDE, SERUM 102 MMOL/L (96-112); CO2 (CARBON DIOXIDE) 23 MMOL/L (24-34); CREATININE 0.78 MG/DL (0.70-1.30); GFR AFRICAN AMERICAN 95 ML/MIN (>=60); GFR NON AFRICAN AMERICAN 82 ML/MIN (>=60); GLOBULIN 3.7 G/DL (2.5-4.1); GLUCOSE, SERUM 94 MG/DL (60-99); POTASSIUM, SERUM 4.2 MMOL/L (3.5-5.3); SGOT(AST) 31 U/L (5-40); SGPT(ALT) 53 U/L (5-65); SODIUM, SERUM 136 MMOL/L (135-148); TOTAL BILIRUBIN 0.3 MG/DL (0-1.2); TOTAL PROTEIN 6.5 G/DL (6.0-8.5); TROPONIN I <0.02 NG/ML (<0.05)
[2017-03-28] MEDS ORDERED: ALBUTEROL0.083 % INH (17:42)
[2017-03-28 17:43] LABS: BUN (BLOOD UREA NITROGEN) 13 MG/DL (6-23)
[2017-03-28] MEDS ORDERED: MEGA625UDL PO (17:43)
[2017-03-28] MEDS ORDERED: PRIM250 PO ×2 (17:43)
[2017-03-28] MEDS ORDERED: ZANTAC150 MG PO (17:43)
[2017-03-28 17:44] LABS: ALKALINE PHOSPHATASE 111 U/L (45-117)
[2017-03-28] MEDS ORDERED: NORCO1 TA1 PO (17:44)
[2017-03-28] MEDS ORDERED: PROSTATE HEALTH PO (17:45)
[2017-03-28] MEDS ORDERED: CYANO1000T PO (17:45)
[2017-03-28 17:47] LABS: ASCORBIC ACID (UR NOT ORDER) NEG (NEG); BILIRUBIN, URINE NEGATIVE (NEG); KETONE, URINE TRACE MG/DL (NEG); LEUKOCYTE ESTERASE(NOT OR SMALL (NEG); NITRITE (URINE) NEG (NEG); WBC (NOT ORDERED) (RFLEX) 19 (0-5)
== END 2017-03-28 20:02 | disposition home or self-care (01) ==
LOC: ER 17:13
PROVIDERS: Emergency Medicine
DX: N39.0 Urinary tract infection, site not specified (principal); R62.7 Adult failure to thrive; C34.90 Malignant neoplasm of unspecified part of unspecified bronchus or lung; J44.9 Chronic obstructive pulmonary disease, unspecified; Z79.899 Other long term (current) drug therapy
CPT/HCPCS: 71010; 80053; 81001; 84484; 85025; 85610; 85730; 87086; 93005; 99285